=== PATIENT | male | born 1955 | race Caucasian/White ===

== ENCOUNTER 2017-07-02 12:31 | Emergency (ER) | payer BC | END 2017-07-02 14:20 | disposition home or self-care (01) | LOC: ER 12:31 | DX: R07.89 Other chest pain (principal); G89.29 Other chronic pain; M25.561 Pain in right knee; I10 Essential (primary) hypertension; I25.10 Atherosclerotic heart disease of native coronary artery without angina pectoris; I48.91 Unspecified atrial fibrillation; Z95.5 Presence of coronary angioplasty implant and graft; Z95.1 Presence of aortocoronary bypass graft; E78.5 Hyperlipidemia, unspecified; E11.9 Type 2 diabetes mellitus without complications; F09 Unspecified mental disorder due to known physiological condition | CPT/HCPCS: 70450; 71020; 71100-LT; 73030-LT; 99285; A9270-GY ==